=== PATIENT | female | born 1960 | race Caucasian/White ===

== ENCOUNTER 2022-06-15 07:10 | Day surgery (SDC) | payer BC, OTHER ==
[2022-06-13 12:56] VITALS: BMI 27.3
[2022-06-15] MEDS ORDERED: LIDOCAINE HCL/PF 2% SDV 5ML VIAL ONE (07:19)
[2022-06-15] MEDS ORDERED: PROPOFOL 120 ML ONE (07:20)
[2022-06-15 07:25] VITALS: RESP 18; TEMP 97.4
[2022-06-15 09:07] VITALS: BP 110/70; PULSE 87
== END 2022-06-15 09:12 | disposition home or self-care (01) ==
LOC: FASU-ENDO 07:10
PROVIDERS: ATTEND Internal Medicine Gastroenterology
PROC: 0DJD8ZZ Inspection of Lower Intestinal Tract, Via Natural or Artificial Opening Endoscopic (ICD-10-PCS; principal; 2022-06-15 08:12)
DX: Z12.11 Encounter for screening for malignant neoplasm of colon (principal); Z86.010 Personal history of colon polyps; K57.30 Diverticulosis of large intestine without perforation or abscess without bleeding
CPT/HCPCS: 82962